=== PATIENT | male | born 1970 | race African-American/Black ===

== ENCOUNTER 2018-01-26 19:28 | Emergency (ER) | payer SELFPAY ==
[~2018-01-26] VITALS: Ht 180.3 cm; Wt 88.0 kg
[2018-01-26 19:58] VITALS: BP 136/73; PULSE 74; RESP 18; TEMP 98.3; O2SAT 99
--- NOTE | 2018-01-26 20:20 | PD ---
HPI Chief Complaint: Injury Time Seen by Provider: 20:20 Travel History International Travel<30 days: No Contact w/Intl Traveler<30days: No Traveled to known affect area: No History of Present Illness HPI 47-year-old male presents emergency department for evaluation right knee pain. Patient states last evening he was walking when he fell into a manhole, striking his right knee. Patient states it has been painful to flex or extend since then. Pain is moderate, constant, exacerbated with movement. No other symptoms to report. PFSH Past Medical History High Cholesterol: Yes Diabetes: Yes Patient Takes Glucophage: No Diminished Hearing: No Hypertension: Yes Thyroid Disease: Yes (hypothyriodism) Tetanus Vaccination: Unknown Influenza Vaccination: No Past Surgical History Oral Surgery: Yes (jaw surgery) Social History Alcohol Use: No Tobacco Use: No Substance Use: No Allergies-Medications (Allergen,Severity, Reaction): Coded Allergies: No Known Allergies (Unverified , 01/26/18) Reported Meds & Prescriptions Reported Meds & Active Scripts Active Ibuprofen 800 Mg Tab 800 Mg PO Q8H PRN Review of Systems Except as stated in HPI: all other systems reviewed are Neg Physical Exam Narrative GENERAL: Well-nourished, well-developed male patient ambulatory with an antalgic gait no acute distress. SKIN: Focused skin assessment warm/dry. HEAD: Normocephalic. EYES: No scleral icterus. No injection or drainage. NECK: Supple, trachea midline. No JVD or lymphadenopathy. CARDIOVASCULAR: Regular rate and rhythm without murmurs, gallops, or rubs. RESPIRATORY: Breath sounds equal bilaterally. No accessory muscle use. MUSCULOSKELETAL: No cyanosis, or edema. Tenderness elicited to palpation over the lateral aspect of the right knee. No deformity. No significant edema. Distal pulses are palpable. Cap refills within normal limits. BACK: Nontender without obvious deformity. No CVA tenderness. Data Data Last Documented VS Vital Signs Date Time Temp Pulse Resp B/P (MAP) Pulse Ox O2 Delivery O2 Flow Rate FiO2 01/26/18 19:58 98.3 74 18 136/73 (94) 99 Orders Orders Knee, Complete (4vws) (01/26/18 ) Ibuprofen (Motrin) (01/26/18 20:30) ^ Knee Immobilizer (01/26/18 21:07) Crutches (01/26/18 21:07) Ed Discharge Order (01/26/18 21:08) [facility] Medical Decision Making Medical Screen Exam Complete: Yes Emergency Medical Condition: Yes Medical Record Reviewed: Yes Differential Diagnosis Contusion versus fracture versus sprain versus dislocation versus ligamentous injury. Narrative Course 47-year-old male presents emergency department for evaluation right knee injury. X-ray imaging confirms no acute bony abnormality. Patient is placed in the immobilizer and provided crutches. He is encouraged to seek outpatient follow-up with orthopedic surgery and is understanding that outpatient MRI may be warranted. Patient agrees to return immediately with any acute worsening symptoms. 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
[2018-01-26] MEDS ORDERED: IBUPROFEN 800 MG TAB PO ONE (20:30)
--- NOTE | 2018-01-26 21:00 | RADRPT ---
EXAM DATE/TIME: 01/26/2018 20:44 [facility] COMPARISON: No previous studies available for comparison. INDICATIONS : Knee pain from fall. MEDICAL HISTORY : None. SURGICAL HISTORY : None. ENCOUNTER: Initial ACUITY: 1 day PAIN SCORE: 0/10 LOCATION: Right knee FINDINGS: Four view examination of the right knee demonstrates no evidence of fracture or dislocation. Bony mi neralization is normal. The articular surfaces are intact. The suprapatellar soft tissues have a no rmal configuration. CONCLUSION: 1. No acute findings. Yunier Castillo MD on January 26, 2018 at 20:57 Board Certified Radiologist. This report was verified electronically.
[2018-01-26] MEDS ORDERED: IBUP1TAB7 PO (21:11)
== END 2018-01-26 21:41 | disposition home or self-care (01) ==
LOC: EDBD 19:28 → NEPC 19:28
DX: S89.91XA Unspecified injury of right lower leg, initial encounter (principal); E78.00 Pure hypercholesterolemia, unspecified; E11.9 Type 2 diabetes mellitus without complications; I10 Essential (primary) hypertension; W17.2XXA Fall into hole, initial encounter
CPT/HCPCS: 73564; 99283; E0113